=== PATIENT | male | born 1995 | race African-American/Black ===

== ENCOUNTER 2017-02-13 19:15 | Emergency (ER) | payer SELFPAY ==
[~2017-02-13] VITALS: Ht 177.8 cm; Wt 72.6 kg
[2017-02-13] MEDS ORDERED: RT-ALBUINH IH (19:34)
[2017-02-13] MEDS ORDERED: LIDOCAINE 2% 20 ML (XYLOCAINE) VIAL ONE (19:35)
--- NOTE | 2017-02-13 19:37 | ED Upper Extremity ---
General Chief Complaint: Upper Extremity Stated Complaint: RT HAND 4TH FINGER DISLOCATED Source: patient History of Present Illness Time seen by provider: 19:30 Initial Comments PT STATES HE WAS PLAYING FOOTBALL ( NOT SCHOOL-ASSOCIATED--"JUST PLAYING AROUND " ) AND CAUGHT A BALL, AND DISLOCATED RIGHT 4TH FINGER OCCURRED 20 MINUTES AGO NO OTHER INJURIES DISLOCATED THIS SAME FINGER/SAME JOINT [employer] IN HIGH SCHOOL WHILE PLAYING BASKETBALL--NO SURGERY REQUIRED, AND NO PROBLEMS SINCE NO PARESTHESIAS PT IS RIGHT HANDED [employer] Allergies and Home Medications Allergies Coded Allergies: No Known Drug Allergies (Unverified , 02/13/17) Home Medications Albuterol Sulfate 1 Puff Puff, 2 PUFF IH Q4H, (Reported) 1 PUFF = 90 MCG Constitutional: no symptoms reported Musculoskeletal: see HPI Skin: no symptoms reported Psychiatric/Neurological: No Symptoms Reported Past Xrcansx-Zvpvxm-Vnyxqi Hx Patient Social History Alcohol Use: Occasionally Uses Recreational Drug Use: Yes (THC) Drug of Choice: thc Smoking Status: Current Everyday Smoker Type Used: Cigarettes Recent Foreign Travel: No Contact w/Someone Who Travel: No Recent Hopitalizations: No Surgeries HX Surgeries: No Respiratory Hx Respiratory Disorders: Yes Respiratory Disorders: Asthma Cardiovascular Hx Cardiac Disorders: No Neurological Hx Neurological Disorders: No Genitourinary Hx Genitourinary Disorders: No Gastrointestinal Hx Gastrointestinal Disorders: No Musculoskeletal Hx Musculoskeletal Disorders: Yes (DISLOCATION RIGHT 4TH FINGER) Endocrine Hx Endocrine Disorders: No HEENT HX ENT Disorders: No Cancer Hx Cancer: No Psychosocial Hx Psychiatric Problems: No Integumentary HX Skin/Integumentary Disorder: No Blood Transfusions Hx Blood Disorders: No Physical Exam Vital Signs Vital Sign - Last 12Hours 02/13/17 19:31 Temp 98.2 Pulse 66 Resp 18 B/P (MAP) 139/85 Pulse Ox 99 Capillary Refill : General Appearance: WD/WN, no apparent distress Wrist: Yes normal inspection Hand: Right, bone tenderness, deformity (PIP JOINT RIGHT 4TH FINGER), limited ROM, soft tissue tenderness Neurologic/Tendon: normal sensation Neurologic/Psychiatric: orthopedic nurse II-XII nml as tested, alert, normal mood/affect, oriented x 3 Skin: normal color, warm/dry Splinting and Joint Reduction : Location: RIGHT 4TH PIP JOINT Pre-Proc Neuro Vasc Exam: normal Post-Proc Neuro Vasc Exam: normal Progress DIGITAL BLOCK PERFORMED TO RIGHT 4TH FINGER WITH 2% LIDOCAINE PLAIN JOINT EASILY REDUCED WITH GENTLE TRACTION FULL ROM AFTER REDUCTION Pre-Procedure NV Exam: Yes post joint reduction film: joint reduced (NO FRACTURE SEEN) Splint Application: Finger Progress/Results/Core Measures Results/Orders My Orders Orders - RENY PARK DO Finger(S) (02/13/17 19:31) Lidocaine 2% Injection 20 Ml (Xylocaine (02/13/17 19:35) Finger(S) (02/13/17 19:50) Splint Application Finger (02/13/17 19:50) Medications Given in ED Current Medications Medications Dose Ordered Sig/Fabián Route Start Time Stop Time Status Last Admin Dose Admin Lidocaine HCl 20 ml STK-MED ONCE .ROUTE 02/13/17 19:35 02/13/17 19:41 DC 02/13/17 19:44 10 ML Vital Signs/I&O Vital Sign - Last 12Hours 02/13/17 02/13/17 19:31 19:59 Temp 98.2 98.2 Pulse 66 66 Resp 18 18 B/P (MAP) 139/85 Pulse Ox 99 99 Diagnostic Imaging Comments FINGER XRAYS--DISLOCATION OF 4TH PIP JOINT WITH DORSAL DISPLACEMENT OF DISTAL PHALANX. NO FRACTURE SEEN POST-REDUCTION FILMS--ADEQUATE REDUCTION, WITH NO FRACTURE SEEN PER RADIOLOGIST REPORTS Reviewed: Reviewed by Me Departure Impression Impression: Primary Impression: CLOSED DISLOCATION OF RIGHT 4TH FINGER PIP JOINT Disposition: 01 HOME, SELF-CARE Condition: Improved Departure-Patient Inst. Referrals: FATUMA GARZON DO NO,LOCAL PHYSICIAN (PCP) Primary Care Physician Patient Instructions: Finger Dislocation (DC), SPLINT CARE Add. Discharge Instructions: ICE TO AREA AT 20 MINUTE INTERVALS WEAR SPLINT AT ALL TIMES TYLENOL AND MOTRIN NEEDED FOR PAIN FOLLOW UP WITH DR. GARZON/ORTHO 4 STATES ON THURSDAY FOR FURTHER CARE All discharge instructions reviewed with patient and/or family. Voiced understanding. RENY PARK DO Feb 13, 2017 19:37
--- NOTE | 2017-02-13 19:49 | Diagnostic Imaging Report ---
INDICATION: Injury to right fourth finger AP and oblique and lateral views of the right fourth finger were obtained, at 7:55 hours p.m. There is dislocation of the PIP joint with the middle phalanx displaced dorsally relative to the proximal phalanx. No definite fracture is seen. IMPRESSION: Dislocation of fourth PIP joint as described above. Dictated by: Dictated on workstation # [id number]
[2017-02-13 19:59] VITALS: BP 139/85
--- NOTE | 2017-02-13 20:14 | Diagnostic Imaging Report ---
INDICATION: Fourth finger dislocation. EXAMINATION: AP, oblique and lateral views of the right fingers were obtained at 7:58 p.m. COMPARISON: 7:55 p.m. the same day. FINDINGS: There has been reduction of the dislocation of the fourth PIP joint. No associated fracture is seen. IMPRESSION: Successful reduction of right PIP dislocation with no associated fracture. Dictated by: Dictated on workstation # [id number]
== END 2017-02-13 20:00 | disposition home or self-care (01) ==
LOC: ER 19:18
DX: S63.284A Dislocation of proximal interphalangeal joint of right ring finger, initial encounter (principal); J45.909 Unspecified asthma, uncomplicated; F17.210 Nicotine dependence, cigarettes, uncomplicated; W21.05XA Struck by basketball, initial encounter; Y93.67 Activity, basketball; Y92.213 High school as the place of occurrence of the external cause
CPT/HCPCS: 29130; 73140

== ENCOUNTER 2017-06-21 12:32 | Inpatient (IN) | payer SELFPAY ==
[2017-06-21] VITALS (9 sets, daily range): BP systolic 105–155; BP diastolic 18–113
[~2017-06-21] VITALS: Ht 175.3 cm; Wt 68.5 kg
[~2017-06-21 12:32] MED LIST: RT-ALBUINH IH
[2017-06-21] MEDS ORDERED: methylPREDNISolone 125 MG (Solu-MEDROL) VIAL IVP ONE (13:00)
[2017-06-21] MEDS ORDERED: RT-ALBUTEROL/IPRATROPIUM 3 ML (DUONEB) VIAL INH ONE ×2 (13:00→13:15)
--- NOTE | 2017-06-21 13:16 | ED Cough/URI ---
General Chief Complaint: Respiratory Problems Stated Complaint: BREATHING TROUBLE Nursing Triage Note: C/O PROGRESSIVE SOA. ONSET YESTERDAY. HX OF ASTHMA. PT ABLE TO TALK IN COMPLETE SENTENCES. Source: patient Exam Limitations: no limitations History of Present Illness Time seen by provider: 13:15 Initial Comments Worsening shortness of breath, wheezing since yesterday. Began as sinus congestion. History of asthma. Has inhaler and nebulizer which hes been using at home without relief. Timing/Duration: constant Severity/Quality: moderate, dry cough Prior Episodes/Possible Cause: occasional episodes Associated Symptoms: cough, shortness of breath, wheezing Allergies and Home Medications Allergies Coded Allergies: No Known Drug Allergies (Unverified , 02/13/17) Home Medications Albuterol Sulfate 1 Puff Puff, 2 PUFF IH PRN PRN for SHORTNESS OF BREATH, ( Reported) 1 PUFF = 90 MCG Constitutional: see HPI EENTM: see HPI Respiratory: see HPI, cough, short of breath, wheezing Cardiovascular: no symptoms reported Genitourinary: no symptoms reported Musculoskeletal: no symptoms reported Skin: no symptoms reported Psychiatric/Neurological: No Symptoms Reported Hematologic/Lymphatic: No Symptoms Reported Past Ivbukpe-Flhmee-Snouuw Hx Patient Social History Alcohol Use: Denies Use Recreational Drug Use: No Drug of Choice: thc Smoking Status: Never a Smoker Type Used: Cigarettes Recent Foreign Travel: No Contact w/Someone Who Travel: No Recent Infectious Disease Expo: No Recent Hopitalizations: No Surgeries History of Surgeries: No Respiratory History of Respiratory Disorde: Yes Respiratory Disorders: Asthma Cardiovascular History of Cardiac Disorders: No Neurological History of Neurological Disord: No Genitourinary History of Genitourinary Disor: No Gastrointestinal History of Gastrointestinal Di: No Musculoskeletal History of Musculoskeletal Dis: No Endocrine History of Endocrine Disorders: No HEENT History of HEENT Disorders: No Cancer History of Cancer: No Psychosocial History of Psychiatric Problem: No Integumentary History of Skin or Integumenta: No Blood Transfusions History of Blood Disorders: No Physical Exam Vital Signs Vital Sign - Last 12Hours 06/21/17 12:57 Temp 98.5 Pulse 90 Resp 18 B/P (MAP) 120/68 (85) Pulse Ox 92 O2 Delivery Room Air Capillary Refill : Less Than 3 Seconds General Appearance: WD/WN, mild distress, thin Eyes: Bilateral Eye Normal Inspection, Bilateral Eye PERRL, Bilateral Eye EOMI HEENT: PERRL/EOMI, normal ENT inspection Neck: non-tender, full range of motion Respiratory: decreased breath sounds, accessory muscle use, wheezing Cardiovascular: regular rate, rhythm, no murmur Gastrointestinal: normal bowel sounds, non tender, soft Extremities: normal range of motion, non-tender Neurologic/Psychiatric: alert, normal mood/affect, oriented x 3 Skin: normal color, warm/dry Progress/Results/Core Measures Suspected Sepsis Recent Fever Within 48 Hours: No Infection Criteria Present: None New/Unexplained Altered Menta: No Sepsis Screen: No Definite Risk Sepsis Diagnosis: SIRS Temperature:98.5 Pulse: 90 Respiratory Rate: 18 Laboratory Tests 06/21/17 13:10: White Blood Count 10.3 Blood Pressure 120 /68 Mean: 85 Laboratory Tests 06/21/17 13:10: Creatinine 1.24, Platelet Count 232 Results/Orders Lab Results Laboratory Tests Test 06/21/17 13:10 Range/Units White Blood Count 10.3 4.3-11.0 10^3/uL Red Blood Count 5.78 4.35-5.85 10^6/uL Hemoglobin 16.0 13.3-17.7 G/DL Hematocrit 46 40-54 % Mean Corpuscular Volume 80 80-99 FL Mean Corpuscular Hemoglobin 28 25-34 PG Mean Corpuscular Hemoglobin Concent 35 32-36 G/DL Red Cell Distribution Width 13.0 10.0-14.5 % Platelet Count 232 130-400 10^3/uL Mean Platelet Volume 10.1 7.4-10.4 FL Neutrophils (%) (Auto) 73 42-75 % Lymphocytes (%) (Auto) 17 12-44 % Monocytes (%) (Auto) 7 0-12 % Eosinophils (%) (Auto) 3 0-10 % Basophils (%) (Auto) 0 0-10 % Neutrophils # (Auto) 7.5 1.8-7.8 X 10^3 Lymphocytes # (Auto) 1.7 1.0-4.0 X 10^3 Monocytes # (Auto) 0.7 0.0-1.0 X 10^3 Eosinophils # (Auto) 0.3 0.0-0.3 10^3/uL Basophils # (Auto) 0.0 0.0-0.1 10^3/uL Sodium Level 142 135-145 MMOL/L Potassium Level 4.1 3.6-5.0 MMOL/L Chloride Level 105 98-107 MMOL/L Carbon Dioxide Level 26 21-32 MMOL/L Anion Gap 11 5-14 MMOL/L Blood Urea Nitrogen 11 7-18 MG/DL Creatinine 1.24 0.60-1.30 MG/DL Estimat Glomerular Filtration Rate > 60 BUN/Creatinine Ratio 9 Glucose Level 119 H 70-105 MG/DL Calcium Level 9.7 8.5-10.1 MG/DL Magnesium Level 1.7 L 1.8-2.4 MG/DL My Orders Orders - ALICIA MARINELLI APRN Albuterol/Ipra Inhalation Soln (Duoneb I (06/21/17 13:00) Methylprednisolone Sod Succ (Solu-Medrol (06/21/17 13:00) Svn Sm Volume Nebulizer Rt-Rfs (06/21/17 12:58) Cbc With Automated Diff (06/21/17 12:58) Basic Metabolic Panel (06/21/17 12:58) Chest Pa/Lat (2 View) (06/21/17 12:58) Magnesium (06/21/17 13:04) Albuterol/Ipra Inhalation Soln (Duoneb I (06/21/17 13:15) Svn Sm Volume Nebulizer Rt-Rfs (06/21/17 13:07) Ondansetron Injection (Zofran Injectio (06/21/17 15:00) Magnesium 1 Gm/100 Ml Ivpb (Magnesium Lopez (06/21/17 15:00) Influenza A And B Antigens (06/21/17 14:54) Medications Given in ED Current Medications Medications Dose Ordered Sig/Fabián Route Start Time Stop Time Status Last Admin Dose Admin Albuterol/ Ipratropium 3 ml ONCE ONCE INH 06/21/17 13:00 06/21/17 13:01 DC 06/21/17 13:07 3 ML Albuterol/ Ipratropium 9 ml ONCE ONCE INH 06/21/17 13:15 06/21/17 13:16 DC 06/21/17 14:03 9 ML Methylprednisolone Sodium Succinate 125 mg ONCE ONCE IVP 06/21/17 13:00 06/21/17 13:01 DC 06/21/17 13:15 125 MG Vital Signs/I&O Vital Sign - Last 12Hours 06/21/17 06/21/17 06/21/17 12:57 13:09 14:05 Temp 98.5 Pulse 90 Resp 18 B/P (MAP) 120/68 (85) Pulse Ox 92 91 94 O2 Delivery Room Air Room Air Nasal Cannula Capillary Refill : Less Than 3 Seconds Blood Pressure Mean: 85 Diagnostic Imaging Diagonstic Imaging: Xray Plain Films/CT/US/NM/MRI: chest Comments NAME: ADAMA SANDOVAL I MED REC#: [id number] PT STATUS: REG ER : 1995 PHYSICIAN: ALICIA MARINELLI APRN ADMIT DATE: 06/21/17/ER Draft Date of Exam:06/21/17 CHEST PA/LAT (2 VIEW) INDICATION: Progressive shortness of air, onset yesterday, history of asthma. EXAMINATION: Two-view chest from 06/21/2017. COMPARISONS: None. FINDINGS: Minimally prominent perihilar regions noted but the peripheral lungs are clear. No infiltrates or effusions. No pneumothorax. Heart is unremarkable. IMPRESSION: 1. Findings likely on the basis of reactive airway disease or viral process, correlate with symptoms. Dictated on workstation # [id number] Dict: 06/21/17 1428 Trans: 06/21/17 1452 [id number] Interpreted by: PAULA GEORGE MD Electronically signed by: Departure Communication (Admissions) Time/Spoke to Admitting Phy: 14:52 Communication Discussed with Bernadette. She agrees. Progress Notes 1451- still audibly wheezy even without stethoscope. States that he feels better. Oxygen saturation 90-92 percent on room air. A little tachypneic at 22 breaths per minute. Given his failure to improve significantly and would feel more comfortable admitting him for supplemental oxygen when necessary, continuous pulse oximetry, mat protocol. He is nauseous after his breathing treatments so will give some Zofran. Impression Impression: Primary Impression: Asthma exacerbation Disposition: ADMITTED INPATIENT Condition: Stable Admissions Decision to Admit Reason: Admit from ER (General) Decision to Admit/Date: Jun 21, 2017 Time/Decision to Admit Time: 14:52 Departure-Patient Inst. Decision time for Depature: 14:45 Referrals: [facility] (PCP/Family) Primary Care Physician Patient Instructions: Asthma, Adult (DC) Add. Discharge Instructions: 1. Return to ER for any worsening 2. Follow-up with your doctor next week 3. All discharge instructions reviewed with patient and/or family. Voiced understanding. Work/School Note: Work Release Form Date Seen in the Emergency Department: Jun 21, 2017 Return to Work: Jun 23, 2017 ALICIA MARINELLI APRN Jun 21, 2017 13:16
[2017-06-21 13:22] LABS: BASOPHILS % (AUTO) 0 % (0-10); EOSINOPHILS # (AUTO) 0.3 10^3/uL (0.0-0.3); EOSINOPHILS % (AUTO) 3 % (0-10); LYMPHOCYTES # (AUTO) 1.7 X 10^3 (1.0-4.0); LYMPHOCYTES % (AUTO) 17 % (12-44); MEAN CORPUSCULAR HEMOGLOBIN 28 PG (25-34); MEAN CORPUSCULAR HGB CONC 35 G/DL (32-36); MEAN CORPUSCULAR VOLUME 80 FL (80-99); MEAN PLATELET VOLUME 10.1 FL (7.4-10.4); MONOCYTES # (AUTO) 0.7 X 10^3 (0.0-1.0); MONOCYTES % (AUTO) 7 % (0-12); NEUTROPHILS # (AUTO) 7.5 X 10^3 (1.8-7.8); NEUTROPHILS % (AUTO) 73 % (42-75); PLATELET COUNT 232 10^3/uL (130-400); RED BLOOD COUNT 5.78 10^6/uL (4.35-5.85); WHITE BLOOD COUNT 10.3 10^3/uL (4.3-11.0)
[2017-06-21 13:32] LABS: ANION GAP 11 MMOL/L (5-14); BLOOD UREA NITROGEN 11 MG/DL (7-18); BUN/CREATININE RATIO 9; CALCIUM 9.7 MG/DL (8.5-10.1); CARBON DIOXIDE 26 MMOL/L (21-32); CHLORIDE 105 MMOL/L (98-107); CREATININE SERUM 1.24 MG/DL (0.60-1.30); GFR ESTIMATED > 60; GLUCOSE 119 MG/DL (70-105); MAGNESIUM 1.7 MG/DL (1.8-2.4); POTASSIUM 4.1 MMOL/L (3.6-5.0); SODIUM 142 MMOL/L (135-145)
[2017-06-21] MEDS ORDERED: PRD20T PO (14:46)
[2017-06-21] MEDS ORDERED: AZIT250T12 PO (14:46)
--- NOTE | 2017-06-21 14:52 | Diagnostic Imaging Report ---
INDICATION: Progressive shortness of air, onset yesterday, history of asthma. EXAMINATION: Two-view chest from 06/21/2017. COMPARISONS: None. FINDINGS: Minimally prominent perihilar regions noted but the peripheral lungs are clear. No infiltrates or effusions. No pneumothorax. Heart is unremarkable. IMPRESSION: 1. Findings likely on the basis of reactive airway disease or viral process, correlate with symptoms. Dictated by: Dictated on workstation # [id number]
[2017-06-21] MEDS ORDERED: ONDANSETRON 4 MG/2 ML (SDV) Z0FRAN IVP ONE (15:00)
[2017-06-21] MEDS: MAGNESIUM 1 GM/100 ML IVPB 100 ML IV SCH ×2 (15:00→16:45)
[2017-06-21] MEDS ORDERED: RT-ALBUTEROL/IPRATROPIUM 3 ML (DUONEB) VIAL ONE (17:02)
[2017-06-21] MEDS ORDERED: RT-LEVALBUTEROL (XOPENEX) 1.25 MG/3 ML NEB NON-FORMULARY INH PRN (17:15)
[2017-06-21] MEDS ORDERED: RT-ALBUTEROL/IPRATROPIUM 3 ML (DUONEB) VIAL INH PRN (17:15)
[2017-06-21] MEDS: methylPREDNISolone 125 MG (Solu-MEDROL) VIAL IV SCH (18:13)
[2017-06-21] MEDS: fentaNYL INJECTION 100 MCG/2 ML AMP IVP PRN ×2 (18:36→22:47)
[2017-06-21] MEDS ORDERED: RT-ALBUTEROL SULF 2.5 MG/3 ML PRE-MIX VIAL IH SCH (19:00)
[2017-06-21] MEDS ORDERED: ONDANSETRON 4 MG/2 ML (SDV) Z0FRAN IV PRN (19:00)
[2017-06-21] MEDS: RT-LEVALBUTEROL (XOPENEX) 1.25 MG/3 ML NEB NON-FORMULARY INH SCH ×2 (19:25→23:07)
[2017-06-22] VITALS (21 sets, daily range): BP systolic 114–155; BP diastolic 54–96
[2017-06-22] MEDS: methylPREDNISolone 125 MG (Solu-MEDROL) VIAL IV SCH ×4 (01:47→19:31)
[2017-06-22] MEDS: RT-LEVALBUTEROL (XOPENEX) 1.25 MG/3 ML NEB NON-FORMULARY INH SCH ×5 (02:39→21:00)
[2017-06-22 05:25] LABS: BASOPHILS % (AUTO) 0 % (0-10); EOSINOPHILS % (AUTO) 0 % (0-10); LYMPHOCYTES # (AUTO) 0.9 X 10^3 (1.0-4.0); LYMPHOCYTES % (AUTO) 8 % (12-44); MEAN CORPUSCULAR HEMOGLOBIN 28 PG (25-34); MEAN CORPUSCULAR HGB CONC 34 G/DL (32-36); MEAN CORPUSCULAR VOLUME 80 FL (80-99); MEAN PLATELET VOLUME 10.2 FL (7.4-10.4); MONOCYTES # (AUTO) 0.2 X 10^3 (0.0-1.0); MONOCYTES % (AUTO) 1 % (0-12); NEUTROPHILS # (AUTO) 10.5 X 10^3 (1.8-7.8); NEUTROPHILS % (AUTO) 91 % (42-75); PLATELET COUNT 248 10^3/uL (130-400); RED BLOOD COUNT 5.75 10^6/uL (4.35-5.85); RED CELL DISTRIBUTION WIDTH 13.1 % (10.0-14.5); WHITE BLOOD COUNT 11.6 10^3/uL (4.3-11.0)
[2017-06-22 05:43] LABS: ANION GAP 11 MMOL/L (5-14); BLOOD UREA NITROGEN 13 MG/DL (7-18); BUN/CREATININE RATIO 10; CALCIUM 9.9 MG/DL (8.5-10.1); CARBON DIOXIDE 26 MMOL/L (21-32); CHLORIDE 104 MMOL/L (98-107); CREATININE SERUM 1.27 MG/DL (0.60-1.30); GFR ESTIMATED > 60; GLUCOSE 176 MG/DL (70-105); MAGNESIUM 2.4 MG/DL (1.8-2.4); PHOSPHORUS 3.4 MG/DL (2.3-4.7); SODIUM 141 MMOL/L (135-145)
[2017-06-22] MEDS ORDERED: KCL 20 MEQ TAB (K-DUR) PO SCH (06:00)
[2017-06-22] MEDS ORDERED: MAGNESIUM 1 GM/100 ML IVPB 100 ML IV SCH (06:00)
[2017-06-22] MEDS ORDERED: POTASSIUM CL 10MEQ/50ML IVPB 50 ML IV SCH (06:00)
[2017-06-22] MEDS: fentaNYL INJECTION 100 MCG/2 ML AMP IVP PRN ×3 (07:36→21:22)
--- NOTE | 2017-06-22 08:37 | History & Physicial ---
HPI History of Present Illness: HPI/Chief Complaint this is a 21-year-old black male whom I have followed at the [facility]. He presents to the emergency room with a 2 day history of increased cough shortness of breath that has not been responsive to his pro-air inhaler. He notes that this started with a sinus infection that had greenish yellow drainage and has progressed to go down into his lungs. He has never had a hospitalization requiring ventilator management. He has had 3 previous hospitalizations for exacerbations of his asthma but not in a long time. He has been prescribed Advair and albuterol however because of the cost he has not been able to afford his Advair and has not been able to stay on it. at the time of my interview this morning he is feeling better but when he talks his oxygen saturations continued to drop down to 85 percent. Source: patient Exam Limitations: no limitations Date Seen 06/22/17 Time Seen by Provider: 08:15 Attending Physician Anna Breen MD [facility] Referring Physician Date of Admission Jun 21, 2017 at 14:55 Home Medications & Allergies Home Medications Reviewed patient Home Medication Reconciliation Form Allergies Allergies Coded Allergies No Known Drug Allergies (Unverified02/13/17) Past Vybhplo-Atesvl-Mvyyig Hx Patient Social History Marrital Status: single Employed/Student: student, full-time Alcohol Use: Denies Use Recreational Drug Use: No Drug of Choice: thc Smoking Status: Current Someday Smoker Type Used: Cigarettes Physical Abuse Screen: No Sexual Abuse: No Recent Foreign Travel: No Contact w/other who traveled: No Recent Hopitalizations: No Recent Infectious Disease Expo: No Seasonal Allergies Seasonal Allergies: Yes Surgeries Yes (HERNIA REPAIR) Respiratory Yes Asthma Cardiovascular No Neurological No Genitourinary No Gastrointestinal Yes (HERNIA REPAIR) Musculoskeletal Yes (RIGHT RING FINGER DISLOCATED X 2) Endocrine History of Endocrine Disorders: No HEENT History of HEENT Disorders: No Cancer No Psychosocial History of Psychiatric Problem: No Integumentary History of Skin or Integumenta: No Blood Transfusions History of Blood Disorders: No Family Medical History Family Hx: Asthma 19 FATHER Review of Systems Constitutional: see HPI, weakness EENTM: nose congestion Respiratory: cough, dyspnea on exertion, short of breath, wheezing Cardiovascular: other (tachycardia) Gastrointestinal: no symptoms reported Genitourinary: no symptoms reported Musculoskeletal: no symptoms reported Skin: no symptoms reported Psychiatric/Neurological: No Symptoms Reported Physical Exam Physical Exam Vital Signs Vital Sign - Last 12Hours 06/21/17 06/21/17 12:57 16:00 Temp 98.5 Pulse 90 Resp 18 B/P (MAP) 120/68 (85) Pulse Ox 92 O2 Delivery Room Air O2 Flow Rate 2.00 Capillary Refill : Less Than 3 Seconds General Appearance: Moderate Distress Eyes: Bilateral Eye Normal Inspection HEENT: Normal ENT Inspection Neck: Full Range of Motion, Normal Inspection, Non Tender, Supple Respiratory: Rhonci, Wheezing Cardiovascular: Tachycardia Gastrointestinal: Soft Assessment/Plan Admission Diagnosis 1.exacerbation of asthma 2. Poor social situation with inability to afford predictably inhaled steroids plan to add an IV antibiotic, continue IV steroids, pulmonary consultation if available, and social work consult to help in obtaining medications Copy Copies To 1: ANNA BREEN MD Clinical Quality Measures DVT/VTE Risk/Contraindication: Risk Factor Score Per Nursin RFS Level Per Nursing on Admit: 1=Low/No VTE PPX ANNA BREEN MD Jun 22, 2017 08:37
[2017-06-22] MEDS ORDERED: AZITHROMYCIN INJECTION 500 MG in NS (IVPB) 250 ML IV NR (08:43)
[2017-06-22] MEDS ORDERED: INFLUENZA TRIvalent 2017-2018 0.5 ML/45 MCG SYR IM ONE (09:00)
--- NOTE | 2017-06-22 09:29 | Diagnostic Imaging Report ---
INDICATION: Dyspnea. Frontal chest obtained at 6:15 a.m. and compared to 06/21/2017. Heart and mediastinal silhouette are normal in appearance. The lungs are clear. There is no pneumothorax or pleural fluid. IMPRESSION: Negative chest. Dictated by: Dictated on workstation # [id number]
[2017-06-22] MEDS ORDERED: RT-ADVAIR HFA 115/21 MCG PER PUFF IH SCH (20:00)
[2017-06-22] MEDS: RT-ADVAIR HFA 115/21 MCG PER PUFF IH SCH (21:37)
[2017-06-22] MEDS ORDERED: KETOROLAC 30 MG/ML VIAL IM ONE (22:15)
[2017-06-22] MEDS: HYDROcodone/APAP 5 MG/325 MG (LORTAB) TAB PO PRN (22:58)
[2017-06-23] VITALS (7 sets, daily range): BP systolic 111–155; BP diastolic 56–68
[2017-06-23] MEDS: methylPREDNISolone 125 MG (Solu-MEDROL) VIAL IV SCH ×2 (00:46→06:20)
[2017-06-23] MEDS: RT-LEVALBUTEROL (XOPENEX) 1.25 MG/3 ML NEB NON-FORMULARY INH SCH ×4 (02:49→21:28)
[2017-06-23 07:00] LABS: BASOPHILS % (AUTO) 0 % (0-10); EOSINOPHILS % (AUTO) 0 % (0-10); LYMPHOCYTES # (AUTO) 0.9 X 10^3 (1.0-4.0); LYMPHOCYTES % (AUTO) 7 % (12-44); MEAN CORPUSCULAR HEMOGLOBIN 27 PG (25-34); MEAN CORPUSCULAR HGB CONC 34 G/DL (32-36); MEAN CORPUSCULAR VOLUME 81 FL (80-99); MONOCYTES # (AUTO) 0.5 X 10^3 (0.0-1.0); MONOCYTES % (AUTO) 4 % (0-12); NEUTROPHILS # (AUTO) 11.8 X 10^3 (1.8-7.8); NEUTROPHILS % (AUTO) 89 % (42-75); PLATELET COUNT 249 10^3/uL (130-400); RED BLOOD COUNT 5.36 10^6/uL (4.35-5.85); RED CELL DISTRIBUTION WIDTH 12.9 % (10.0-14.5); WHITE BLOOD COUNT 13.2 10^3/uL (4.3-11.0)
[2017-06-23 07:17] LABS: ANION GAP 9 MMOL/L (5-14); BLOOD UREA NITROGEN 24 MG/DL (7-18); BUN/CREATININE RATIO 21; CALCIUM 9.6 MG/DL (8.5-10.1); CARBON DIOXIDE 26 MMOL/L (21-32); CHLORIDE 104 MMOL/L (98-107); CREATININE SERUM 1.14 MG/DL (0.60-1.30); GFR ESTIMATED > 60; GLUCOSE 132 MG/DL (70-105); POTASSIUM 5.2 MMOL/L (3.6-5.0); SODIUM 139 MMOL/L (135-145)
[2017-06-23 07:30] LABS: BAND NEUTROPHILS 0 %; BASOPHILS % (MANUAL) 0 %; EOSINOPHILS % (MANUAL) 0 %; LYMPHOCYTES % (MANUAL) 6 %; NEUTROPHILS % (MANUAL) 93 %
--- NOTE | 2017-06-23 08:02 | Pulmonary Consultation ---
History of Present Illness History of Present Illness Date of Consultation 06/23/17 07:57 Time Seen by Provider: 07:58 Date of Admission History of Present Illness 21yo pt with hx of asthma admitted secondary to worsening SOB x 2 days and wheezings. Proair INH has not helped. Symptoms started with a sinus infectaion and yellow/green sputum. He has had 3 previous hospitalizations secondary to asthma AE. Pt has not been able to afford advair INH and has only been taking albuterol. Pt's Sp02 has been dropping to 85% upon admission with just talking. I am consulted for pulmonary management. Allergies and Home Medications Allergies Coded Allergies: No Known Drug Allergies (Unverified , 02/13/17) Home Medications Albuterol Sulfate 1 Puff Puff, 2 PUFF IH PRN PRN for SHORTNESS OF BREATH, ( Reported) 1 PUFF = 90 MCG Fluticasone/Salmeterol 1 Each Blst.w.dev, 1 EACH IH BID, #1 Ref 12 Prescribed by: EAGLE BREEN on 06/23/17 0831 Prednisone 10 Mg Tab.ds.pk, 10 MG PO DAILY, #42 Take 6 tabs(60mg)daily,decrease by 1 tab(10mg)every other day. Prescribed by: EAGLE BREEN on 06/23/17 0831 Past Zailxhz-Mnqfml-Xwzslv Hx Patient Social History Alcohol Use: Denies Use Recreational Drug Use: No Drug of Choice: thc Smoking Status: Current Someday Smoker Type Used: Cigarettes Recent Foreign Travel: No Contact w/Someone Who Travel: No Recent Infectious Disease Expo: No Recent Hopitalizations: No Seasonal Allergies Seasonal Allergies: Yes Surgeries History of Surgeries: Yes (HERNIA REPAIR) Respiratory History of Respiratory Disorde: Yes Respiratory Disorders: Asthma Cardiovascular History of Cardiac Disorders: No Neurological History of Neurological Disord: No Genitourinary History of Genitourinary Disor: No Gastrointestinal History of Gastrointestinal Di: Yes (HERNIA REPAIR) Musculoskeletal History of Musculoskeletal Dis: Yes (RIGHT RING FINGER DISLOCATED X 2) Endocrine History of Endocrine Disorders: No HEENT History of HEENT Disorders: No Cancer History of Cancer: No Psychosocial History of Psychiatric Problem: No Integumentary History of Skin or Integumenta: No Blood Transfusions History of Blood Disorders: No Family Medical History Family Medial History: Asthma 19 FATHER Review of Systems Time Seen by Provider: 08:27 Constitutional: Weakness, Malaise ENT: Nose congestion Respiratory: Cough, Dry, Shortness of breath, SOB with excertion Cardiovascular: Paroxysmal Noc. Dyspnea Gastrointestinal: No: Nausea, Vomiting, Abdominal Pain, Diarrhea, Constipation , Melena, Hematochezia, Other Neurological: Weakness Exam Exam Vital Signs Date Time Temp Pulse Resp B/P (MAP) Pulse Ox O2 Delivery O2 Flow Rate FiO2 06/23/17 04:55 96.8 69 20 133/61 (85) 96 Nasal Cannula 4.00 06/23/17 00:35 98.0 94 18 149/64 (92) 95 Nasal Cannula 4.00 06/22/17 22:05 98.0 80 18 139/72 (94) 100 High Flow N/C 6.00 06/22/17 21:37 88 Nasal Cannula 2.00 06/22/17 20:00 Nasal Cannula 2.00 06/22/17 19:50 97.5 91 22 121/76 (91) 94 High Flow N/C 2.00 06/22/17 18:00 112 18 123/66 (85) 93 High Flow N/C 2.00 06/22/17 17:00 114 19 138/69 (92) 92 High Flow N/C 2.00 06/22/17 16:00 113 18 121/68 (85) 91 High Flow N/C 2.00 06/22/17 15:28 High Flow N/C 2.00 06/22/17 15:00 115 19 124/96 (105) 91 High Flow N/C 2.00 06/22/17 14:33 High Flow N/C 2.00 06/22/17 14:23 95 Nasal Cannula 4.00 06/22/17 14:00 118 20 126/70 (88) 92 High Flow N/C 4.00 06/22/17 13:00 101 20 118/72 (87) 93 High Flow N/C 4.00 06/22/17 13:00 88 06/22/17 12:50 High Flow N/C 4.00 06/22/17 12:50 97.5 06/22/17 12:00 95 22 114/54 (74) 95 High Flow N/C 4.00 06/22/17 11:00 114 35 143/64 (90) 93 High Flow N/C 4.00 06/22/17 10:36 95 Nasal Cannula 4.00 06/22/17 10:00 96 19 133/64 (87) 98 High Flow N/C 4.00 06/22/17 09:10 97.4 High Flow N/C 4.00 06/22/17 09:10 High Flow N/C 4.00 06/22/17 09:00 95 16 150/76 (100) 98 High Flow N/C 4.00 06/22/17 08:00 112 19 155/76 (102) 96 High Flow N/C 4.00 I & O 06/23/17 07:00 Intake Total 1900 ml Output Total 0 ml Balance 1900 ml General Appearance: Moderate Distress HEENT: Normal ENT Inspection Neck: Full Range of Motion, Normal Inspection, Non Tender, Supple Respiratory: Rhonci, Wheezing Cardiovascular: Tachycardia Capillary Refill: Less Than 3 Seconds Gastrointestinal: normal bowel sounds, non tender, soft Neurologic/Psychiatric: Alert, Oriented x3 Results Lab Laboratory Tests 06/21/17 13:10 06/22/17 05:05 06/23/17 06:48 Assessment/Plan Assessment/Plan Asthma AE with probable mucous plugging and hypoxemia -SVNs -Solumedrol -IVF Allergic rhinitis -Claritin, Flonase, and Singulair Marijuana use -education 254 Clinical Quality Measures DVT/VTE Risk/Contraindication: Risk Factor Score Per Nursin RFS Level Per Nursing on Admit: 1=Low/No VTE PPX PATRICIO ANTOINE DO Jun 23, 2017 08:02
[2017-06-23] MEDS ORDERED: PRED10TA22 PO (08:31)
[2017-06-23] MEDS ORDERED: FLUT1DIS26 IH (08:31)
--- NOTE | 2017-06-23 08:35 | Discharge Summary ---
Diagnosis/Chief Complaint Date of Admission Jun 21, 2017 at 3:45 pm Date of Discharge June 23, 2017 Discharge Date: Jun 23, 2017 Discharge Time: 10:00 Admission Diagnosis 1.exacerbation of asthma 2. Poor social situation with inability to afford predictably inhaled steroids plan to add an IV antibiotic, continue IV steroids, pulmonary consultation if available, and social work consult to help in obtaining medications Discharge Diagnosis 1. acute respiratory failure 2. Exacerbation of asthma Discharge Summary Procedures none Consultations Dr. Ramirez Discharge Physical Examination Allergies: Coded Allergies: No Known Drug Allergies (Unverified , 02/13/17) Vitals & I&Os Vital Signs Date Time Temp Pulse Resp B/P (MAP) Pulse Ox O2 Delivery O2 Flow Rate FiO2 06/23/17 04:55 96.8 69 20 133/61 (85) 96 Nasal Cannula 4.00 General Appearance: Alert, Oriented X3, Cooperative Respiratory: Other (slight expiratory wheezes) Cardiovascular: Regular Rate, Normal S1, Normal S2 Abdominal: Soft Psych/Mental Status: Mental Status NL Hospital Course patient was admitted and had to be transferred to the ICU because of progressive hypoxia. He was maintained on aggressive IV Solu-Medrol and pulmonary toilet. Patient did have some difficulty with tachycardia secondary to the beta agonists. He was changed to Xopenex because of this. The patient was seen in consultation by Dr. Ramirez who had no further suggestions and was agreeable to discharge on a prednisone taper. Social work saw the patient and gave him an Advair coupon for $10 a month that is maintained for a year. the patient will be given 90 note for classes for today and possibly tomorrow. We will make sure that his oxygenation remained above 90-92 percent on room air before discharge as well. Labs (last 24 hrs) Laboratory Tests 06/23/17 06:48: White Blood Count 13.2H, Red Blood Count 5.36, Hemoglobin 14.7, Hematocrit 44, Mean Corpuscular Volume 81, Mean Corpuscular Hemoglobin 27, Mean Corpuscular Hemoglobin Concent 34, Red Cell Distribution Width 12.9, Platelet Count 249, Mean Platelet Volume 10.0, Neutrophils (%) (Auto) 89H, Lymphocytes (%) (Auto) 7L , Monocytes (%) (Auto) 4, Eosinophils (%) (Auto) 0, Basophils (%) (Auto) 0, Neutrophils # (Auto) 11.8H, Lymphocytes # (Auto) 0.9L, Monocytes # (Auto) 0.5, Eosinophils # (Auto) 0.0, Basophils # (Auto) 0.0, Neutrophils % (Manual) 93, Lymphocytes % (Manual) 6, Monocytes % (Manual) 1, Eosinophils % (Manual) 0, Basophils % (Manual) 0, Band Neutrophils 0, Blood Morphology Comment NORMAL, Sodium Level 139, Potassium Level 5.2H, Chloride Level 104, Carbon Dioxide Level 26, Anion Gap 9, Blood Urea Nitrogen 24H, Creatinine 1.14, Estimat Glomerular Filtration Rate > 60, BUN/Creatinine Ratio 21, Glucose Level 132H, Calcium Level 9.6 Microbiology 06/21/17 Influenza Types A,B Antigen (JACKIE) - Final, Complete Pending Labs Laboratory Tests 06/23/17 06:48: White Blood Count 13.2, Red Blood Count 5.36, Hemoglobin 14.7, Hematocrit 44, Mean Corpuscular Volume 81, Mean Corpuscular Hemoglobin 27, Mean Corpuscular Hemoglobin Concent 34, Red Cell Distribution Width 12.9, Platelet Count 249, Mean Platelet Volume 10.0, Neutrophils (%) (Auto) 89, Lymphocytes (%) (Auto) 7, Monocytes (%) (Auto) 4, Eosinophils (%) (Auto) 0, Basophils (%) (Auto) 0, Neutrophils # (Auto) 11.8, Lymphocytes # (Auto) 0.9, Monocytes # (Auto) 0.5, Eosinophils # (Auto) 0.0, Basophils # (Auto) 0.0, Neutrophils % (Manual) 93, Lymphocytes % (Manual) 6, Monocytes % (Manual) 1, Eosinophils % (Manual) 0, Basophils % (Manual) 0, Band Neutrophils 0, Blood Morphology Comment NORMAL, Sodium Level 139, Potassium Level 5.2, Chloride Level 104, Carbon Dioxide Level 26, Anion Gap 9, Blood Urea Nitrogen 24, Creatinine 1.14, Estimat Glomerular Filtration Rate > 60, BUN/Creatinine Ratio 21, Glucose Level 132, Calcium Level 9.6 Discharge Home Medications: Active Scripts Active Prednisone 10 Mg Tab.ds.pk 10 Mg PO DAILY Take 6 tabs(60mg)daily,decrease by 1 tab(10mg)every other day. Advair 250-50 Diskus (Fluticasone/Salmeterol) 1 Each Blst.w.dev 1 Each IH BID Reported Proair Hfa (Albuterol Sulfate) 1 Puff Puff 2 Puff IH PRN PRN 1 PUFF = 90 MCG Condition at discharge stable Instructions to patient/family Please see electronic discharge instructions given to patient. Clinical Quality Measures DVT/VTE Risk/Contraindication: Risk Factor Score Per Nursin RFS Level Per Nursing on Admit: 1=Low/No VTE PPX EAGLE BREEN MD Jun 23, 2017 8:35 am
--- NOTE | 2017-06-23 09:21 | Diagnostic Imaging Report ---
EXAMINATION: Portable erect AP chest at 5:06 AM. INDICATION: Dyspnea. FINDINGS: The heart size is within normal limits and stable when compared to 06/22/2017. The lungs are clear but perhaps mildly hyperexpanded. There is still no evidence for pneumonia or for a pleural effusion. There is no sign of a pneumothorax. The mediastinum is not widened. The osseous structures are intact. IMPRESSION: Stable chest. There has been no adverse change since the prior exam. Dictated by: Dictated on workstation # [id number]
[2017-06-23] MEDS: RT-ADVAIR HFA 115/21 MCG PER PUFF IH SCH ×2 (09:37→21:27)
[2017-06-23] MEDS: guaiFENesin (MUCINEX) 600 MG TAB PO SCH ×2 (11:15→19:55)
[2017-06-23] MEDS: HYDROcodone/APAP 5 MG/325 MG (LORTAB) TAB PO PRN (11:21)
[2017-06-23] MEDS: methylPREDNISolone 40 MG/ML (Solu-MEDROL) VIAL IV SCH ×2 (13:08→19:28)
[2017-06-23] MEDS: ALPRAZolam 0.25 MG (XANAX) TAB PO PRN (15:04)
[2017-06-24] VITALS: BP 120/55
[2017-06-24] MEDS: methylPREDNISolone 40 MG/ML (Solu-MEDROL) VIAL IV SCH ×5 (00:29→23:57)
[2017-06-24] MEDS: RT-LEVALBUTEROL (XOPENEX) 1.25 MG/3 ML NEB NON-FORMULARY INH SCH ×5 (03:00→22:29)
[2017-06-24 04:00] VITALS: BP 133/58
[2017-06-24 05:30] LABS: BASOPHILS % (AUTO) 0 % (0-10); EOSINOPHILS % (AUTO) 0 % (0-10); LYMPHOCYTES # (AUTO) 0.8 X 10^3 (1.0-4.0); LYMPHOCYTES % (AUTO) 9 % (12-44); MEAN CORPUSCULAR HEMOGLOBIN 28 PG (25-34); MEAN CORPUSCULAR HGB CONC 34 G/DL (32-36); MEAN CORPUSCULAR VOLUME 82 FL (80-99); MONOCYTES # (AUTO) 0.3 X 10^3 (0.0-1.0); MONOCYTES % (AUTO) 3 % (0-12); NEUTROPHILS # (AUTO) 8.2 X 10^3 (1.8-7.8); NEUTROPHILS % (AUTO) 88 % (42-75); PLATELET COUNT 250 10^3/uL (130-400); RED BLOOD COUNT 5.29 10^6/uL (4.35-5.85); RED CELL DISTRIBUTION WIDTH 12.8 % (10.0-14.5); WHITE BLOOD COUNT 9.3 10^3/uL (4.3-11.0)
[2017-06-24 05:49] LABS: ANION GAP 11 MMOL/L (5-14); BLOOD UREA NITROGEN 23 MG/DL (7-18); BUN/CREATININE RATIO 25; CALCIUM 8.7 MG/DL (8.5-10.1); CARBON DIOXIDE 26 MMOL/L (21-32); CHLORIDE 103 MMOL/L (98-107); CREATININE SERUM 0.91 MG/DL (0.60-1.30); GFR ESTIMATED > 60; GLUCOSE 134 MG/DL (70-105); POTASSIUM 4.6 MMOL/L (3.6-5.0); SODIUM 140 MMOL/L (135-145)
[2017-06-24] MEDS ORDERED: NS IV 500 ML 500 ML IV SCH (07:11)
--- NOTE | 2017-06-24 07:11 | Pulmonary Progress Note ---
Subjective Time Seen by Provider: 07:40 Subjective/Events-last exam Pt was walked yesterday and Sp02 dropped to <90 and oxygen was increased. Exam Exam Vital Signs Date Time Temp Pulse Resp B/P (MAP) Pulse Ox O2 Delivery O2 Flow Rate FiO2 06/24/17 04:00 98.5 71 20 133/58 (83) 93 Nasal Cannula 1.00 06/24/17 00:00 96.9 66 22 120/55 (76) 99 Nasal Cannula 1.00 06/23/17 21:28 93 Nasal Cannula 3.00 06/23/17 21:28 97 Nasal Cannula 4.00 06/23/17 20:00 98.4 82 20 137/63 (87) 99 Nasal Cannula 4.00 06/23/17 19:53 Nasal Cannula 2.00 06/23/17 15:48 79 151/65 (93) 94 Nasal Cannula 4.00 06/23/17 15:26 97.8 109 18 155/68 (97) 93 Nasal Cannula 4.00 06/23/17 14:45 93 Nasal Cannula 4.00 06/23/17 12:00 98.7 69 20 126/58 (80) 94 Nasal Cannula 4.00 06/23/17 09:35 88 Room Air 06/23/17 08:00 Nasal Cannula 2.00 06/23/17 08:00 96.6 58 20 111/56 (74) 95 Nasal Cannula 4.00 I & O 06/24/17 07:00 Intake Total 1350 ml Output Total 0 ml Balance 1350 ml General Appearance: Moderate Distress HEENT: Normal ENT Inspection Neck: Full Range of Motion, Normal Inspection, Non Tender, Supple Respiratory: No Accessory Muscle Use, No Respiratory Distress, Wheezing Cardiovascular: Tachycardia Capillary Refill: Less Than 3 Seconds Gastrointestinal: normal bowel sounds, non tender, soft Extremity: Non Tender, No Calf Tenderness, No Pedal Edema Skin: Normal Color, Warm/Dry Lymphatic: No Adenopathy Results Lab Laboratory Tests 06/23/17 06:48 06/24/17 05:05 Assessment/Plan Assessment/Plan Asthma AE with probable mucous plugging and hypoxemia -Mucinex -SVNs -Solumedrol -IVF 500cc bolus then 125cc/hr Allergic rhinitis -start Claritin, Flonase, and Singulair Marijuana use -education Pt was going to be discharged yesterday however with ambulation his Sp02 dropped to <90. Discharge was held and oxygen was increased. 232 Clinical Quality Measures DVT/VTE Risk/Contraindication: Risk Factor Score Per Nursin RFS Level Per Nursing on Admit: 1=Low/No VTE PPX PATRICIO ANTOINE DO Jun 24, 2017 07:11
[2017-06-24 07:35] VITALS: BP 125/56
[2017-06-24] MEDS: guaiFENesin (MUCINEX) 600 MG TAB PO SCH ×2 (08:54→21:06)
[2017-06-24] MEDS: NS IV 1000 ML 1,000 ML IV SCH ×2 (08:54→16:49)
[2017-06-24] MEDS: LORATADINE (CLARITIN) 10 MG TAB PO SCH (08:55)
--- NOTE | 2017-06-24 08:59 | Diagnostic Imaging Report ---
INDICATION: Dyspnea. TECHNIQUE: A frontal chest was obtained at 0451 hours. COMPARISON: 06/23/2017. FINDINGS: The heart and mediastinal silhouette are normal in appearance. The lungs are clear. There is no pneumothorax or pleural fluid. IMPRESSION: No acute process in the chest. Dictated by: Dictated on workstation # [id number]
[2017-06-24] MEDS: RT-IPRATROPIUM (ATROVENT) 0.5MG/2.5ML AMP IH SCH ×4 (09:36→22:29)
[2017-06-24] MEDS: RT-ADVAIR HFA 115/21 MCG PER PUFF IH SCH ×2 (09:36→18:49)
[2017-06-24] MEDS: FLUTICASONE NASAL SPRAY (FLONASE) 16 GM BTL NS SCH (09:57)
--- NOTE | 2017-06-24 10:25 | Physician Progress Note ---
Subjective HPI/CC On Admission Date Seen by Provider: Jun 24, 2017 Time Seen by Provider: 08:00 this is a 21-year-old black male whom I have followed at the [facility]. He presents to the emergency room with a 2 day history of increased cough shortness of breath that has not been responsive to his pro-air inhaler. He notes that this started with a sinus infection that had greenish yellow drainage and has progressed to go down into his lungs. He has never had a hospitalization requiring ventilator management. He has had 3 previous hospitalizations for exacerbations of his asthma but not in a long time. He has been prescribed Advair and albuterol however because of the cost he has not been able to afford his Advair and has not been able to stay on it. at the time of my interview this morning he is feeling better but when he talks his oxygen saturations continued to drop down to 85 percent. Subjective/Events-last exam pt was unable to be D/C yesterday because of continued desaturation off O2. This am he is somewhat depressed. Says the Xopenex makes him feel funny. Hates the albuterol because of tachycardia. Review of Systems Pulmonary: Dyspnea, Cough Cardiovascular: Palpitations Objective Exam Vital Signs Vital Sign - Last 12Hours 06/21/17 06/21/17 12:57 16:00 Temp 98.5 Pulse 90 Resp 18 B/P (MAP) 120/68 (85) Pulse Ox 92 O2 Delivery Room Air O2 Flow Rate 2.00 Capillary Refill : Less Than 3 Seconds General Appearance: No Apparent Distress, WD/WN HEENT: Normal ENT Inspection Neck: Supple Respiratory: Decreased Breath Sounds, Wheezing Cardiovascular: Tachycardia Gastrointestinal: Soft Results/Procedures Lab Laboratory Tests 06/24/17 05:05 Procedures none Assessment/Plan Assessment and Plan Assess & Plan/Chief Complaint 1. acute respiratory failure- slow to improve 2. Exacerbation of asthma 3. tachycardia- will use Xanax as needed to help with the anxiety. Discussed with Dr. Ramirze- will change back to increased frequency of breathing treatments, IV fluids and IV steroids EAGLE BREEN MD Jun 24, 2017 10:25
[2017-06-24] MEDS: ALPRAZolam 0.25 MG (XANAX) TAB PO PRN ×2 (13:05→17:53)
[2017-06-24 15:45] VITALS: BP 122/58
[2017-06-24] MEDS ORDERED: MONTELUKAST 10 MG (SINGULAIR) TAB PO SCH (21:00)
[2017-06-24] MEDS: HYDROcodone/APAP 5 MG/325 MG (LORTAB) TAB PO PRN (21:07)
[2017-06-25] VITALS: BP 151/71
[2017-06-25] MEDS: NS IV 1000 ML 1,000 ML IV SCH ×2 (00:58→09:18)
[2017-06-25] MEDS: RT-LEVALBUTEROL (XOPENEX) 1.25 MG/3 ML NEB NON-FORMULARY INH SCH ×4 (02:27→15:20)
[2017-06-25] MEDS: RT-IPRATROPIUM (ATROVENT) 0.5MG/2.5ML AMP IH SCH ×4 (02:27→15:21)
[2017-06-25] MEDS: methylPREDNISolone 40 MG/ML (Solu-MEDROL) VIAL IV SCH ×2 (06:08→12:12)
[2017-06-25 06:13] LABS: BASOPHILS % (AUTO) 0 % (0-10); EOSINOPHILS % (AUTO) 0 % (0-10); LYMPHOCYTES # (AUTO) 0.6 X 10^3 (1.0-4.0); LYMPHOCYTES % (AUTO) 8 % (12-44); MEAN CORPUSCULAR HEMOGLOBIN 28 PG (25-34); MEAN CORPUSCULAR HGB CONC 34 G/DL (32-36); MEAN CORPUSCULAR VOLUME 83 FL (80-99); MEAN PLATELET VOLUME 10.2 FL (7.4-10.4); MONOCYTES # (AUTO) 0.4 X 10^3 (0.0-1.0); MONOCYTES % (AUTO) 6 % (0-12); NEUTROPHILS % (AUTO) 85 % (42-75); PLATELET COUNT 242 10^3/uL (130-400); RED BLOOD COUNT 4.77 10^6/uL (4.35-5.85); RED CELL DISTRIBUTION WIDTH 12.6 % (10.0-14.5)
[2017-06-25 06:22] LABS: ANION GAP 9 MMOL/L (5-14); BLOOD UREA NITROGEN 17 MG/DL (7-18); BUN/CREATININE RATIO 21; CALCIUM 8.7 MG/DL (8.5-10.1); CARBON DIOXIDE 23 MMOL/L (21-32); CHLORIDE 107 MMOL/L (98-107); GFR ESTIMATED > 60; GLUCOSE 178 MG/DL (70-105); POTASSIUM 4.3 MMOL/L (3.6-5.0); SODIUM 139 MMOL/L (135-145)
[2017-06-25] MEDS: RT-ADVAIR HFA 115/21 MCG PER PUFF IH SCH (06:54)
--- NOTE | 2017-06-25 07:11 | Diagnostic Imaging Report ---
EXAMINATION: Portable erect AP chest obtained at 425h. INDICATION: Dyspnea The heart size is within normal limits and stable when compared to 06/24/2017. In the interval since the prior study a vague area of increased density has developed about the right hilum. I am concerned that there may be an element of mild pneumonia/atelectasis in this area. The overall appearance of the chest is otherwise stable. There is no sign of a pleural effusion. The mediastinum is not widened. The osseous structures are intact. IMPRESSION: 1. The findings are suspicious for mild right perihilar pneumonia/atelectasis. Clinical followup is recommended. 2. There is no acute cardiopulmonary abnormality identified otherwise. Dictated by: Dictated on workstation # [id number]
--- NOTE | 2017-06-25 08:10 | Pulmonary Progress Note ---
Exam Exam Vital Signs Date Time Temp Pulse Resp B/P (MAP) Pulse Ox O2 Delivery O2 Flow Rate FiO2 06/25/17 06:56 Nasal Cannula 2.00 06/25/17 06:55 94 Nasal Cannula 2.00 06/25/17 02:27 Nasal Cannula 2.00 06/25/17 00:00 97.9 77 20 151/71 (97) 98 Nasal Cannula 2.00 06/24/17 22:29 91 Room Air 06/24/17 20:00 Nasal Cannula 2.00 06/24/17 18:56 Nasal Cannula 3.00 06/24/17 18:50 97 Nasal Cannula 3.00 06/24/17 15:45 98.1 90 18 122/58 (79) 93 Nasal Cannula 3.00 06/24/17 13:11 91 Nasal Cannula 3.00 06/24/17 09:38 93 Nasal Cannula 3.00 I & O 06/25/17 07:00 Intake Total 3850 ml Balance 3850 ml General Appearance: No Apparent Distress, WD/WN HEENT: Normal ENT Inspection Neck: Supple Respiratory: Decreased Breath Sounds, Wheezing Cardiovascular: Tachycardia Capillary Refill: Less Than 3 Seconds Gastrointestinal: normal bowel sounds, non tender, soft Extremity: Non Tender, No Calf Tenderness, No Pedal Edema Neurologic/Psychiatric: Alert, Oriented x3 Skin: Normal Color, Warm/Dry Lymphatic: No Adenopathy Results Lab Laboratory Tests 06/24/17 05:05 06/25/17 05:27 Assessment/Plan Assessment/Plan Asthma AE with probable mucous plugging and hypoxemia -Mucinex -SVNs -Solumedrol - Change to prednisone taper upon discharge -IVF 500cc bolus then 125cc/hr -Pt is currently on RA -Will have RT do oxygen desaturation testing this AM Atelectasis - doubt PNA -Increase activity -Continue bronchodilator therapy and steroids Allergic rhinitis -Claritin, Flonase, and Singulair Marijuana use -education 232 Clinical Quality Measures DVT/VTE Risk/Contraindication: Risk Factor Score Per Nursin RFS Level Per Nursing on Admit: 1=Low/No VTE PPX PATRICIO ANTOINE DO Jun 25, 2017 08:10
[2017-06-25 08:26] VITALS: BP 158/64
--- NOTE | 2017-06-25 08:31 | Physician Progress Note ---
Subjective HPI/CC On Admission Date Seen by Provider: Jun 25, 2017 Time Seen by Provider: 08:15 this is a 21-year-old black male whom I have followed at the [facility]. He presents to the emergency room with a 2 day history of increased cough shortness of breath that has not been responsive to his pro-air inhaler. He notes that this started with a sinus infection that had greenish yellow drainage and has progressed to go down into his lungs. He has never had a hospitalization requiring ventilator management. He has had 3 previous hospitalizations for exacerbations of his asthma but not in a long time. He has been prescribed Advair and albuterol however because of the cost he has not been able to afford his Advair and has not been able to stay on it. at the time of my interview this morning he is feeling better but when he talks his oxygen saturations continued to drop down to 85 percent. Subjective/Events-last exam patient is feeling somewhat better. Discussed his case with Dr. Ramirez this morning. Chest x-ray shows some atelectasis probably secondary to mucous plugging. Patient is off oxygen with O2 sats running around 93 percent. He is anxious to go home. We'll change him to by mouth prednisone make sure that he does not desaturate with exercise and get him home today. Review of Systems Pulmonary: Dyspnea Objective Exam Vital Signs Vital Sign - Last 12Hours 06/21/17 06/21/17 12:57 16:00 Temp 98.5 Pulse 90 Resp 18 B/P (MAP) 120/68 (85) Pulse Ox 92 O2 Delivery Room Air O2 Flow Rate 2.00 Capillary Refill : Less Than 3 Seconds General Appearance: WD/WN HEENT: Normal ENT Inspection Neck: Supple Respiratory: Decreased Breath Sounds, Wheezing (inspiratory and expiratory) Cardiovascular: Regular Rate, Rhythm, No Murmur Gastrointestinal: Non Tender, Soft Results/Procedures Lab Laboratory Tests 06/25/17 05:27 Procedures none Assessment/Plan Assessment and Plan Assess & Plan/Chief Complaint 1. acute respiratory failure- slow to improve-changed to by mouth prednisone and possible discharge today 2. Exacerbation of asthma 3. tachycardia- will use Xanax as needed to help with the anxiety. Discussed with Dr. [id number] with [facility] tomorrow if discharged today EAGLE BREEN MD Jun 25, 2017 08:31
[2017-06-25] MEDS ORDERED: RT-ALBUTEROL HFA (VENTOLIN) PER PUFF IH PRN (09:15)
[2017-06-25] MEDS: guaiFENesin (MUCINEX) 600 MG TAB PO SCH (09:18)
[2017-06-25] MEDS: LORATADINE (CLARITIN) 10 MG TAB PO SCH (09:18)
[2017-06-25] MEDS: FLUTICASONE NASAL SPRAY (FLONASE) 16 GM BTL NS SCH (09:18)
[2017-06-25] MEDS ORDERED: RT-ALBUTEROL SULF 2.5 MG/3 ML PRE-MIX VIAL IH PRN (10:30)
[2017-06-25] MEDS ORDERED: RT-ALBUTEROL HFA (VENTOLIN) PER PUFF IH SCH (11:00)
[2017-06-25] MEDS: RT-ALBUTEROL SULF 2.5 MG/3 ML PRE-MIX VIAL IH SCH ×2 (13:42→15:00)
[2017-06-25 15:10] VITALS: BP 134/62
== END 2017-06-25 15:40 | disposition home or self-care (01) | DRG 189 ==
LOC: EDUNIT# 12:32 → ER 12:33 → 4TH 14:55 → UNDOADMOB 14:55 → 4TH 15:45 → ICU 18:55 → 4TH 06-22 20:12 → OBSVTOIN 06-24 08:31 → EDPENDDISDT 06-25 10:00
PROVIDERS: ADMIT Internal Medicine; ATTEND Internal Medicine
DX: J96.00 Acute respiratory failure, unspecified whether with hypoxia or hypercapnia (principal); J45.901 Unspecified asthma with (acute) exacerbation; J98.11 Atelectasis; R00.0 Tachycardia, unspecified; F41.9 Anxiety disorder, unspecified; F17.210 Nicotine dependence, cigarettes, uncomplicated; F12.90 Cannabis use, unspecified, uncomplicated; Z91.120 Patient's intentional underdosing of medication regimen due to financial hardship
CPT/HCPCS: 36415; 71010; 71020; 80048; 83735; 84100; 85007; 85025; 85027; 87804; 93005; 94640; 94664; 94760; 99284; G0378